=== PATIENT | male | born 1950 | race Caucasian/White ===

== ENCOUNTER 2017-05-24 11:32 | Emergency (ER) | payer BC, OTHER ==
[2017-05-24] MEDS ORDERED: KETOROLAC 30 MG/1 ML SDV IVP ONE (13:03)
[2017-05-24 13:13] LABS: PLATELET COUNT 237 10^3/uL (150-400)
--- NOTE | 2017-05-24 15:20 | EDPHY ---
H & P Stated Complaint: Right flank pain since Wednesday, similar to previous kidney stones. Time Seen by Provider: 05/24/17 12:41 HPI/ROS: CHIEF COMPLAINT: Right-sided low back pain HISTORY OF PRESENT ILLNESS: This is a 67-year-old male with a history of hypertension, ureterolithiasis, renal calculi, and hyperlipidemia. He presents with right flank and low back pain that began 3 days ago. The pain has been intermittent. It was severe enough that he canceled an out of town trip. This morning the pain was so intense that it caused him to cry. He took 400 mg of Advil earlier today. He had some improvement with this medication. The pain is not worse with movement. He he has been doing some new exercises and wonders if he could have strained his low back. He has recently noticed some weakness in his right upper leg when he tries to rise out of a chair. He he has not had difficulty walking. He denies numbness and has not had any bowel or bladder changes. He believes that he had an MRI of his back about 2 and half years ago. He has not noticed hematuria. REVIEW OF SYSTEMS: A ten point review of systems was performed and is negative with the exception of the items mentioned in the HPI. Past medical history: 1. Ureterolithiasis 2. Hypertension 3. Hyperlipidemia Past surgical history: Removal of skin cancers Social history: He is retired after working in [employer]. He lives part- time in [place]. He does not use tobacco products. He drinks alcohol socially. General Appearance: Alert. Vital signs reviewed. Eyes: Pupils equal and round, no conjunctival injection, no discharge. Anicteric. ENT, Mouth: Mucous membranes are moist, no oropharyngeal erythema or edema. Neck: No lymphadenopathy, supple. Respiratory: Lungs are clear to auscultation; no wheezes, rales, or rhonchi. Cardiovascular: Regular rate and rhythm; no murmur, rub, or gallop. Gastrointestinal: Abdomen is soft and nontender, no masses or organomegaly, bowel sounds normal. Skin: Warm and dry, no rashes on exposed skin, normal color. Back: Nontender to palpation over the thoracolumbar spine. Right CVAT. Extremities: No lower extremity edema, no calf tenderness or swelling. Neurological: Alert and oriented. Moving all four extremities easily and equally. Strength is 5 over 5 bilaterally with testing of all major motor groups in both lower extremities. Sensation is intact to light touch over both lower extremities. Deep tendon reflexes are 2+ in the knees bilaterally. Gait is normal; he is able to heel walk and toe walk. Psychiatric: Normal affect. - Personal History Current Tetanus Diphtheria and Acellular Pertussis (TDAP): Yes Tetanus Vaccine Date: <10 years. - Medical/Surgical History Hx Asthma: No Hx Chronic Respiratory Disease: No Hx Diabetes: No Hx Cardiac Disease: Yes Hx Renal Disease: No Hx Cirrhosis: No Hx Alcoholism: No Hx HIV/AIDS: No Hx Splenectomy or Spleen Trauma: No Other PMH: HTN, high cholesterol, BCC face. - Social History Smoking Status: Never smoked Constitutional: Initial Vital Signs Temperature (C) 36.7 C 05/24/17 11:34 Heart Rate 89 05/24/17 11:34 Respiratory Rate 18 05/24/17 11:34 Blood Pressure 192/107 H 05/24/17 11:34 O2 Sat (%) 94 05/24/17 11:34 O2 Delivery Mode Room Air Allergies/Adverse Reactions: No Known Allergies Allergy (Verified 12/23/14 21:02) Home Medications: Medication Instructions Recorded Amlodipine Besylate 5 mg PO DAILY 12/23/14 Atenolol [Tenormin 50 mg (*)] 50 mg PO DAILY 12/23/14 Simvastatin [Zocor] 20 mg PO HS 12/23/14 Hydrocodone/APAP 5/325 [Hilger 1 - 2 tab PO Q4 PRN #15 tab 05/24/17 5/325 (RX)] Medical Decision Making ED Course/Re-evaluation: Patient has a normal neurologic exam. Initial differential diagnosis is right- sided sciatica versus ureterolithiasis. He was given Toradol 15 mg IV. On reexamination he is completely pain free. He does have hematuria. I suspect that this is ureterolithiasis. I do not suspect urinary tract infection or pyelonephritis. There is nothing on physical/neurologic exam that would indicate a need for emergent imaging. In discussion with him he would like to return home without further evaluation at this point in time. He will be given a prescription for opiate pain medication to use if needed. He will be given a referral to primary care physician and also to a urologist. His medical providers are in [place]. Danger signs that should prompt him to be re- evaluated were reviewed with him. Differential Diagnosis: Back pain including but not limited to muscular pain, herniated disc, spine fracture, intra-abdominal causes and urinary tract infection. Flank pain including but not limited to musculoskeletal causes, kidney stone, pyelonephritis, shingles, and intra-abdominal causes such as diverticulitis and appendicitis. - Data Points Laboratory Results: Laboratory Results 05/24/17 12:10 05/24/17 12:10 Medications Given: Discontinued Medications Ketorolac Tromethamine (Toradol) 15 mg IVP EDNOW ONE Stop: 05/24/17 13:04 Last Admin: 05/24/17 13:21 Dose: 15 mg Departure - Departure Disposition: Home, Routine, Self-Care Clinical Impression: Ureterolithiasis Condition: Good Instructions: Kidney Stones (ED), Renal Colic (ED), How to Strain Your Urine ( ED) Referrals: ELIJAH KLEIN [Other] - As per Instructions Natalia Yu MD [Medical Doctor] - As per Instructions Prescriptions: Hydrocodone/APAP 5/325 [Hilger 5/325 (RX)] 1 - 2 tab PO Q4 PRN #15 tab PRN Reason: pain
[2017-05-24 15:34] VITALS: BP 177/106
== END 2017-05-24 15:34 | disposition home or self-care (01) ==
DX: N20.1 Calculus of ureter (principal); I10 Essential (primary) hypertension
CPT/HCPCS: 96374; 99284; J1885